=== PATIENT | male | born 1965 | race Hispanic/Latino ===

== ENCOUNTER → 2019-12-11 | Outpatient (CLI) | payer BC | END | disposition home or self-care (01) | LOC: RAH 15:58 | PROVIDERS: ATTEND Internal Medicine | DX: M25.462 Effusion, left knee (principal); M23.92 Unspecified internal derangement of left knee | CPT/HCPCS: 73721 ==

== ENCOUNTER → 2022-11-18 | Outpatient (CLI) | payer BC | END | disposition home or self-care (01) | LOC: RAH 11:10 | PROVIDERS: ATTEND Internal Medicine | DX: I10 Essential (primary) hypertension (principal); M47.815 Spondylosis without myelopathy or radiculopathy, thoracolumbar region | CPT/HCPCS: 71046 ==

== ENCOUNTER 2023-06-20 06:07 | Observation (INO) | payer BC ==
[2023-06-16 14:14] LABS: BASOPHILS # (AUTO) 0.01 K/uL (0.00-0.20); BASOPHILS % (AUTO) 0.2 % (0.0-5.0); EOSINOPHILS % (AUTO) 1.5 % (0.0-8.0); HEMATOCRIT 40.5 % (42-54); IMMATURE GRANULOCYTE ABSOLUTE 0.02 K/uL (0-1); LYMPHOCYTES # (AUTO) 1.8 K/uL (1.0-4.8); LYMPHOCYTES % (AUTO) 27.7 % (21.0-51.0); MEAN CORPUSCULAR HEMOGLOBIN 29.8 pg (27.0-33.0); MEAN CORPUSCULAR HGB CONC 32.3 g/dL (32.0-36.0); MEAN CORPUSCULAR VOLUME 92.3 fL (79-99); MONOCYTES # (AUTO) 0.7 K/uL (0.1-1.0); MONOCYTES % (AUTO) 11.1 % (3.0-13.0); NEUTROPHILS # (AUTO) 3.9 K/uL (1.8-7.7); NEUTROPHILS % (AUTO) 59.2 % (40.0-77.0); PLATELET COUNT (AUTO) 174 K/uL (130-400); RED BLOOD CELL COUNT(AUTO) 4.39 MIL/uL (4.50-6.20); RED CELL DISTRIBUTION WIDTH 12.9 % (11.0-15.5); WHITE BLOOD COUNT (AUTO) 6.6 K/uL (4.8-10.8)
[2023-06-16 14:24] LABS: POTASSIUM 4.4 mmol/L (3.5-5.1)
[2023-06-16 14:51] VITALS: BP 116/66; PULSE 68; RESP 16
[2023-06-19 23:55] VITALS: BP 115/68; PULSE 86; RESP 18
[~2023-06-20] VITALS: Ht 182.9 cm; Wt 124.7 kg
[2023-06-20] VITALS (21 sets, daily range): BP systolic 105–148; BP diastolic 58–78; PULSE 65–98; RESP 16–20
[~2023-06-20 06:07] MED LIST: ATOR20TA65 PO; CLOP75TA32 PO; GABA300C PO; LISI5TAB21 PO; TAMS-1 PO; TIRZ2.5P SQ
[2023-06-20] MEDS ORDERED: 0.9%NACL 1000ML 1,000 ML IV ONE (09:42)
[2023-06-20] MEDS ORDERED: CEFAZOLIN SODIUM 2 GM VIAL ONE (09:42)
[2023-06-20] MEDS ORDERED: LIDOCAINE PF 100MG/5ML (2%) SYRINGE 5ML ONE (12:46)
[2023-06-20] MEDS ORDERED: PROPOFOL 10 MG/ML 20ML VIAL IV ONE (12:47)
[2023-06-20] MEDS ORDERED: ROCURONIUM 10MG/1ML SYR 10 MG/ML ML ONE ×2 (12:47→15:55)
[2023-06-20] MEDS ORDERED: MIDAZOLAM HCL 1 MG/ML 2ML VIAL ONE ×2 (12:47→16:34)
[2023-06-20] MEDS ORDERED: FENTANYL CITRATE PF 50 MCG/1 ML 2ML VIAL ONE (12:48)
[2023-06-20] MEDS ORDERED: FENTANYL CITRATE PF 50 MCG/1 ML 5ML AMP IV ONE (14:07)
[2023-06-20] MEDS ORDERED: TRANEXAMIC ACID 1000MG/10ML ONE ×2 (15:02→17:26)
[2023-06-20] MEDS ORDERED: ROPIVACAINE 0.5% 5MG/ML 30ML IJ ONE (15:03)
[2023-06-20] MEDS ORDERED: KCL 20 MEQ ERTAB PO PRN (15:30)
[2023-06-20] MEDS ORDERED: POTASSIUM CHLORIDE 10% ELIXIR 20 MEQ/15 ML UDCUP PO PRN (15:30)
[2023-06-20] MEDS ORDERED: HYDROCODONE/ACETAMINOPHEN 5/325 MG TAB PO PRN (15:30)
[2023-06-20] MEDS ORDERED: MORPHINE 4 MG SYG IVP PRN (15:30)
[2023-06-20] MEDS ORDERED: POTASSIUM CHLORIDE 20MEQ/100ML 100 ML IV PRN (15:30)
[2023-06-20] MEDS ORDERED: ONDANSETRON 4MG INJ IVP PRN (15:30)
[2023-06-20] MEDS ORDERED: HYDROCODONE/ACETAMINOPHEN 10/325 MG TAB PO PRN (15:30)
[2023-06-20] MEDS ORDERED: CEFAZOLIN SODIUM 2 GM VIAL IVPB ONE (15:35)
[2023-06-20] MEDS ORDERED: TRANEXAMIC ACID 1000MG/10ML IV ONE (15:45)
[2023-06-20] MEDS ORDERED: MORPHINE PF 100MG/10ML AMP IV ONE (16:13)
[2023-06-20] MEDS ORDERED: MEPERIDINE-PF 25 MG/ML SYG ONE ×2 (17:11→18:14)
[2023-06-20] MEDS: TRAMADOL HCL 50 MG TABLET PO SCH ×2 (18:00→23:10)
[2023-06-20] MEDS ORDERED: ACETAMINOPHEN 1,000 MG/100 ML VIAL IV ONE (18:29)
[2023-06-20] MEDS: ACETAMINOPHEN 1,000 MG/100 ML VIAL IV SCH (18:31)
[2023-06-20] MEDS: 0.9%NACL 1000ML 1,000 ML IV SCH (19:56)
[2023-06-20] MEDS: IBUPROFEN 800MG + NS 250ML IV SCH (19:56)
[2023-06-20] MEDS: CELECOXIB 200 MG CAP PO SCH (20:31)
[2023-06-20] MEDS: FAMOTIDINE 20MG TAB PO SCH (20:32)
[2023-06-20] MEDS: ASPIRIN 81 MG EC TAB PO SCH (20:32)
[2023-06-20] MEDS: CEFAZOLIN SODIUM 2 GM VIAL IVPB SCH (20:32)
[2023-06-20] MEDS ORDERED: TAMSULOSIN HCL 0.4 MG CAP.ER.24H PO SCH (21:00)
[2023-06-20] MEDS ORDERED: GABAPENTIN 300 MG CAPSULE PO SCH (21:00)
[2023-06-20] MEDS ORDERED: CLOPIDOGREL 75MG TAB PO SCH (21:00)
[2023-06-20] MEDS ORDERED: LISINOPRIL 5 MG TABLET PO SCH (21:00)
[2023-06-21] MEDS: ACETAMINOPHEN 1,000 MG/100 ML VIAL IV SCH ×2 (00:18→05:50)
[2023-06-21] MEDS: 0.9%NACL 1000ML 1,000 ML IV SCH (00:35)
[2023-06-21 00:55] VITALS: BP 117/66; PULSE 95; RESP 18
[2023-06-21] MEDS: IBUPROFEN 800MG + NS 250ML IV SCH ×2 (02:58→11:20)
[2023-06-21] MEDS: CEFAZOLIN SODIUM 2 GM VIAL IVPB SCH (03:49)
[2023-06-21 04:00] VITALS: BP 139/75; PULSE 91; RESP 18
[2023-06-21 04:32] LABS: HEMATOCRIT 37.8 % (42-54); MEAN CORPUSCULAR HEMOGLOBIN 29.7 pg (27.0-33.0); MEAN CORPUSCULAR HGB CONC 32.8 g/dL (32.0-36.0); MEAN CORPUSCULAR VOLUME 90.4 fL (79-99); RED BLOOD CELL COUNT(AUTO) 4.18 MIL/uL (4.50-6.20); RED CELL DISTRIBUTION WIDTH 12.4 % (11.0-15.5)
[2023-06-21 04:47] LABS: CREATININE 0.9 mg/dL (0.5-1.5); POTASSIUM 4.6 mmol/L (3.5-5.1)
[2023-06-21] MEDS: TRAMADOL HCL 50 MG TABLET PO SCH ×2 (05:50→11:20)
[2023-06-21 07:52] VITALS: BP 107/58; PULSE 72; RESP 19
[2023-06-21] MEDS: CELECOXIB 200 MG CAP PO SCH (08:36)
[2023-06-21] MEDS: FAMOTIDINE 20MG TAB PO SCH (08:36)
[2023-06-21] MEDS: ASPIRIN 81 MG EC TAB PO SCH (08:36)
[2023-06-21] MEDS ORDERED: POLYETHYLENE GLYCOL 3350 17 GM POWD.PACK PO SCH (09:00)
[2023-06-21 11:13] VITALS: BP 104/57; PULSE 74; RESP 19
[2023-06-21 15:40] VITALS: BP 115/60; PULSE 69; RESP 19
[2023-06-21] MEDS ORDERED: DOXY100C5 PO (16:46)
[2023-06-21] MEDS ORDERED: HYDR-4060 PO (16:47)
[2023-06-23] MEDS ORDERED: BISACODYL 10 MG SUPP.RECT RC PRN (15:30)
[2023-06-24] MEDS ORDERED: Tirzepatide (Mounjaro) 2.5 MG SQ SCH (09:00)
== END 2023-06-21 17:30 | disposition home or self-care (01) ==
LOC: DAH 06:07 → DAHIP 06:08 → DAH 06:08 → 4DH 19:18
PROVIDERS: ADMIT Orthopaedic Surgery; ATTEND Orthopaedic Surgery
DX: M17.12 Unilateral primary osteoarthritis, left knee (principal); I10 Essential (primary) hypertension; E11.9 Type 2 diabetes mellitus without complications; N40.0 Benign prostatic hyperplasia without lower urinary tract symptoms; E66.9 Obesity, unspecified; G89.18 Other acute postprocedural pain; E78.00 Pure hypercholesterolemia, unspecified; Z68.37 Body mass index [BMI] 37.0-37.9, adult; Z79.899 Other long term (current) drug therapy; Z98.890 Other specified postprocedural states
CPT/HCPCS: 80048 ×2; 85025; 36415 ×2; 87641; 27447; 96365; 96366 ×2; 96375; 96368; 64447; 82948 ×3; 96376; 85027; 97161; 97039 ×3; 97116 ×2; A6260; C1713; G0378 ×22; A4663; J7030 ×2; A4649 ×2; J3010 ×2; J3490 ×3; J2001; J2250 ×2; J2704; J2274; J2405; J2175 ×2; J2795; J1741 ×3; J0690 ×4; A6223; G0168; C1776 ×3; A6254; A5120 ×2; A4215; A4223; A4222; A4221; A6450